=== PATIENT | male | born 1970 | race Two or more races ===

== ENCOUNTER 2017-09-09 07:10 | Emergency (ER) | payer MEDICAID, OTHER ==
[~2017-09-09] VITALS: Ht 175.3 cm; Wt 83.9 kg
[2017-09-09] MEDS ORDERED: DONNATAL 5ml ORAL Elix (BELLADONNA ALK-PHENOBARB) PO ONE (08:15)
[2017-09-09] MEDS ORDERED: ALUM & MAG HYDROX-SIMETH LIQ(MAALOX) 30 ML PO ONE (08:15)
[2017-09-09] MEDS ORDERED: LIDOCAINE VISCOUS 2% 15ML UD PO ONE (08:15)
[2017-09-09 08:21] LABS: Basophils # (auto) 0 uL; Basophils % (auto) 0.2 % (0.0-2.0); Eosinophils # (auto) 0 uL; Hemoglobin 9.8 g/dL (13.5-17.5); Lymphocytes # (auto) 0.8 uL; Mean Corpuscular Hgb Conc. 33.9 g/dL (32.0-36.0); Mean Corpuscular Volume 88.5 fL (80.0-100.0); Monocytes # (auto) 0.4 uL; Monocytes % (auto) 4.3 % (0.0-12.0); Neutrophils # (auto) 8.1 uL; Neutrophils % (auto) 86.5 % (37.0-80.0); Platelet Count (auto) 148 10^3/uL (140-450); Red Blood Cells 3.28 10^6/uL (4.5-5.90); Red Cell Distribution Width 15.4 % (11.8-14.3); White Blood Cell 9.3 10^3/uL (4.4-10.8)
[2017-09-09 08:46] LABS: Albumin 2.7 g/dL (3.4-5.0); BUN/Creatinine Ratio 35.9; Bilirubin, Total 1.5 mg/dL (0.2-1.0); Calcium 8.1 mg/dL (8.5-10.1); Potassium 3.8 mmol/L (3.5-5.1)
[2017-09-09 09:06] LABS: Urine Bacteria NONE SEEN /hpf (None Seen); Urine Blood 2+ /uL (Negative); Urine Hyaline Cast FEW /lpf (0 - 2); Urine Mucus FEW (None Seen); Urine Specific Gravity 1.025 (1.001-1.035); Urine WBC 6 /hpf (0 - 3)
[2017-09-09] MEDS ORDERED: cefTRIAXone SOD 1,000 MG VL IM ONE (09:30)
[2017-09-09] MEDS ORDERED: cefTRIAXone 1GM/10ml IVPUSH 10 ML IV ONE (10:30)
[2017-09-09 10:39] VITALS: BP 116/67
== END 2017-09-09 11:40 | disposition home or self-care (01) ==
LOC: ER 07:10
DX: K46.9 Unspecified abdominal hernia without obstruction or gangrene (principal); N39.0 Urinary tract infection, site not specified
CPT/HCPCS: 36415; 74176; 80053; 81001; 85025; 96374

== ENCOUNTER 2021-04-13 06:28 | Emergency (ER) | payer MEDICAID ==
[~2021-04-13] VITALS: Ht 177.8 cm; Wt 101.2 kg
[~2021-04-13 06:28] MED LIST: FERR27TA2 PO; FURO40TA4 PO
[2021-04-13 08:36] LABS: Basophils # (auto) 0 10 ^3/uL (0-0.2); Eosinophils # (auto) 0.1 10 ^3/uL (0-0.8); Hematocrit 26.1 % (41.0-53.0); Hemoglobin 7.9 g/dL (13.5-17.5)
[2021-04-13 08:39] LABS: Basophils % (auto) 0.2 % (0.0-2.0); Lymphocytes # (auto) 0.8 10 ^3/uL (0.4-5.4); Lymphocytes % (auto) 12.9 % (10.0-50.0); Mean Corpuscular Hemoglobin 18.9 pg (28.0-32.0); Mean Corpuscular Hgb Conc. 30.4 g/dL (32.0-36.0); Mean Corpuscular Volume 62.2 fL (80.0-100.0); Monocytes # (auto) 0.5 10 ^3/uL (0-1.3); Monocytes % (auto) 8.8 % (0.0-12.0); Neutrophils # (auto) 4.8 10 ^3/uL (1.6-8.6); Neutrophils % (auto) 77.1 % (37.0-80.0); Nucleated Red Blood Cells % 0.2 %; Red Blood Cells 4.19 10^6/uL (4.5-5.90); Red Cell Distribution Width 22.7 % (11.8-14.3); White Blood Cell 6.2 10^3/uL (4.4-10.8)
[2021-04-13 08:47] LABS: Potassium 4.1 mmol/L (3.5-5.1)
[2021-04-13 08:56] LABS: BUN/Creatinine Ratio 30.6; Bilirubin, Total 1.2 mg/dL (0.2-1.0); Calcium 8.7 mg/dL (8.5-10.1); INR 1.17 (0.9-1.15); Partial Thromboplastin Time 24.3 sec (23.6-33.0); Total Protein 7.2 g/dL (6.4-8.2)
[2021-04-13 11:30] VITALS: BP 132/88
== END 2021-04-13 12:18 | disposition home or self-care (01) ==
LOC: ER 06:28
DX: K74.60 Unspecified cirrhosis of liver (principal); Z86.2 Personal history of diseases of the blood and blood-forming organs and certain disorders involving the immune mechanism; Z79.899 Other long term (current) drug therapy
CPT/HCPCS: 36415; 49083; 76700; 76942; 80053; 83605; 83690; 84484; 85025; 85610; 85730; 87040; 99285; C1729; 49082

== ENCOUNTER 2021-04-24 09:59 | Inpatient (IN) | payer MEDICAID ==
[~2021-04-24] VITALS: Ht 167.6 cm; Wt 87.3 kg
[2021-04-24 11:12] LABS: Basophils # (auto) 0 10 ^3/uL (0-0.2); Eosinophils # (auto) 0 10 ^3/uL (0-0.8); Hemoglobin 7.8 g/dL (13.5-17.5); Mean Corpuscular Hemoglobin 19.5 pg (28.0-32.0); Mean Corpuscular Hgb Conc. 30.4 g/dL (32.0-36.0); Monocytes # (auto) 0.4 10 ^3/uL (0-1.3); Red Blood Cells 3.98 10^6/uL (4.5-5.90)
[2021-04-24 11:20] LABS: Basophils % (auto) 0.5 % (0.0-2.0); Eosinophils % (auto) 0.5 % (0.0-7.0); Hematocrit 25.5 % (41.0-53.0); Lymphocytes # (auto) 0.4 10 ^3/uL (0.4-5.4); Lymphocytes % (auto) 8.1 % (10.0-50.0); Monocytes % (auto) 8.5 % (0.0-12.0); Neutrophils # (auto) 3.7 10 ^3/uL (1.6-8.6); Neutrophils % (auto) 82.4 % (37.0-80.0); Nucleated Red Blood Cells % 0.2 %; Red Cell Distribution Width 26.9 % (11.8-14.3); White Blood Cell 4.5 10^3/uL (4.4-10.8)
[2021-04-24 11:27] LABS: Albumin 2.7 g/dL (3.4-5.0); Calcium 8.3 mg/dL (8.5-10.1); Potassium 5.1 mmol/L (3.5-5.1)
[2021-04-24 11:30] LABS: BUN/Creatinine Ratio 26.6; Total Protein 6.8 g/dL (6.4-8.2)
[2021-04-24 12:00] LABS: INR 1.08 (0.9-1.15)
[2021-04-24] MEDS ORDERED: MORPHINE SULFATE INJECTION 2 MG/ML SYRG IV PRN ×2 (16:15)
[2021-04-24] MEDS ORDERED: NITROGLYCERIN 0.4 MG SL TAB SL PRN (16:15)
[2021-04-24] MEDS ORDERED: ONDANSETRON HCL 4 MG/2 ML VIAL IV PRN (16:15)
[2021-04-24] MEDS: SODIUM CHLORIDE 0.9% 1,000 ML IV SCH (16:38)
[2021-04-24 23:25] VITALS: BP 127/70
[2021-04-25] MEDS: SODIUM CHLORIDE 0.9% 1,000 ML IV SCH (00:35)
[2021-04-25 05:00] VITALS: BP 125/81
[2021-04-25 06:53] LABS: Albumin 2.6 g/dL (3.4-5.0); BUN/Creatinine Ratio 29.9; Calcium 8.4 mg/dL (8.5-10.1); Potassium 4.8 mmol/L (3.5-5.1)
[2021-04-25 06:56] LABS: Bilirubin, Total 0.9 mg/dL (0.2-1.0); Total Protein 6.5 g/dL (6.4-8.2)
[2021-04-25 07:09] LABS: Basophils # (auto) 0 10 ^3/uL (0-0.2); Basophils % (auto) 0.4 % (0.0-2.0); Eosinophils # (auto) 0 10 ^3/uL (0-0.8); Eosinophils % (auto) 1.1 % (0.0-7.0); Hematocrit 26.2 % (41.0-53.0); Hemoglobin 7.6 g/dL (13.5-17.5); Lymphocytes # (auto) 0.3 10 ^3/uL (0.4-5.4); Lymphocytes % (auto) 9.4 % (10.0-50.0); Mean Corpuscular Hgb Conc. 28.9 g/dL (32.0-36.0); Monocytes # (auto) 0.3 10 ^3/uL (0-1.3); Monocytes % (auto) 9.7 % (0.0-12.0); Neutrophils # (auto) 2.8 10 ^3/uL (1.6-8.6); Neutrophils % (auto) 79.4 % (37.0-80.0); Nucleated Red Blood Cells % 0.2 %; Red Blood Cells 4.03 10^6/uL (4.5-5.90); White Blood Cell 3.5 10^3/uL (4.4-10.8)
[2021-04-25 07:12] LABS: Mean Corpuscular Hemoglobin 18.8 pg (28.0-32.0); Mean Corpuscular Volume 64.9 fL (80.0-100.0); Red Cell Distribution Width 27.4 % (11.8-14.3)
[2021-04-25 09:00] VITALS: BP 118/77
[2021-04-25] MEDS: HYDROcodone-ACET 5/325MG TAB PO PRN ×2 (10:53→20:29)
[2021-04-25 13:00] VITALS: BP 117/70
[2021-04-25 17:00] VITALS: BP 118/70
[2021-04-25 22:00] VITALS: BP 100/68
[2021-04-26 05:00] VITALS: BP 105/70
[2021-04-26 09:00] VITALS: BP 118/73
[2021-04-26 13:00] VITALS: BP 104/75
[2021-04-26 17:00] VITALS: BP 116/67
[2021-04-26] MEDS: HYDROcodone-ACET 5/325MG TAB PO PRN (21:42)
[2021-04-26 21:53] VITALS: BP 130/73
[2021-04-27 04:59] VITALS: BP 108/59
[2021-04-27 09:00] VITALS: BP 123/76
[2021-04-27] MEDS: FUROSEMIDE 40 MG/4 ML VIAL IV SCH (10:07)
[2021-04-27] MEDS: SPIRONOLACTONE 25 MG TAB PO SCH (10:07)
[2021-04-27 13:00] VITALS: BP 116/77
[2021-04-27 17:00] VITALS: BP 136/85
[2021-04-27 20:00] VITALS: BP 128/74
[2021-04-27 22:00] VITALS: BP_SYST 108; BP_SYST 126; BP_DIAS 56; BP_DIAS 61
[2021-04-27] MEDS: HYDROcodone-ACET 5/325MG TAB PO PRN (22:13)
[2021-04-28 05:00] VITALS: BP 108/65
[2021-04-28 09:00] VITALS: BP 122/79
[2021-04-28] MEDS: SPIRONOLACTONE 25 MG TAB PO SCH (09:32)
[2021-04-28] MEDS: FUROSEMIDE 40 MG/4 ML VIAL IV SCH (09:41)
[2021-04-28 13:00] VITALS: BP 95/57
[2021-04-28 15:38] LABS: Basophils # (auto) 0 10 ^3/uL (0-0.2); Basophils % (auto) 0.4 % (0.0-2.0); Eosinophils # (auto) 0 10 ^3/uL (0-0.8); Eosinophils % (auto) 0.8 % (0.0-7.0); Hemoglobin 8.1 g/dL (13.5-17.5); Lymphocytes # (auto) 0.4 10 ^3/uL (0.4-5.4); Lymphocytes % (auto) 8.9 % (10.0-50.0); Mean Corpuscular Hemoglobin 19.3 pg (28.0-32.0); Mean Corpuscular Hgb Conc. 30.1 g/dL (32.0-36.0); Monocytes # (auto) 0.4 10 ^3/uL (0-1.3); Monocytes % (auto) 9.4 % (0.0-12.0); Neutrophils # (auto) 3.6 10 ^3/uL (1.6-8.6); Neutrophils % (auto) 80.5 % (37.0-80.0); Nucleated Red Blood Cells % 0.1 %; White Blood Cell 4.5 10^3/uL (4.4-10.8)
[2021-04-28 15:39] LABS: Mean Corpuscular Volume 64.2 fL (80.0-100.0)
[2021-04-28 15:50] LABS: Calcium 7.9 mg/dL (8.5-10.1); Potassium 4.8 mmol/L (3.5-5.1)
[2021-04-28 15:55] LABS: Albumin 2.5 g/dL (3.4-5.0); BUN/Creatinine Ratio 26.2; Bilirubin, Total 0.8 mg/dL (0.2-1.0); Total Protein 6.4 g/dL (6.4-8.2)
[2021-04-28 17:00] VITALS: BP 98/70
[2021-04-28 17:17] LABS: Hepatitis A Ab IgM Negative; Hepatitis B Core IgM Negative
[2021-04-28 17:18] LABS: Hepatitis C Antibody Negative (Negative)
[2021-04-28 19:50] VITALS: BP 107/66
[2021-04-28] MEDS: HYDROcodone-ACET 5/325MG TAB PO PRN (20:59)
[2021-04-28 21:18] VITALS: BP 107/66
[2021-04-29 05:00] VITALS: BP 98/71
[2021-04-29 09:00] VITALS: BP 110/71
[2021-04-29] MEDS: SPIRONOLACTONE 25 MG TAB PO SCH (10:03)
[2021-04-29] MEDS: FUROSEMIDE 40 MG/4 ML VIAL IV SCH (10:03)
[2021-04-29 13:00] VITALS: BP 102/59
[2021-04-29 13:32] LABS: INR 1.1 (0.9-1.15); Partial Thromboplastin Time 25.8 sec (23.6-33.0)
[2021-04-29 17:00] VITALS: BP 105/64
[2021-04-29 22:00] VITALS: BP 116/68
[2021-04-29] MEDS: HYDROcodone-ACET 5/325MG TAB PO PRN (22:16)
[2021-04-30 05:00] VITALS: BP 93/55
[2021-04-30] MEDS: FUROSEMIDE 40 MG/4 ML VIAL IV SCH (10:07)
[2021-04-30] MEDS: SPIRONOLACTONE 25 MG TAB PO SCH (10:07)
[2021-04-30 13:00] VITALS: BP 102/64
[2021-04-30] MEDS: HYDROcodone-ACET 5/325MG TAB PO PRN ×2 (14:23→20:54)
[2021-04-30 22:00] VITALS: BP 112/62
[2021-05-01] MEDS: HYDROcodone-ACET 5/325MG TAB PO PRN (03:44)
[2021-05-01 05:00] VITALS: BP 103/60
[2021-05-01 06:54] LABS: Calcium 7.8 mg/dL (8.5-10.1); Potassium 5.1 mmol/L (3.5-5.1)
[2021-05-01 07:00] LABS: Albumin 2.3 g/dL (3.4-5.0); Total Protein 5.8 g/dL (6.4-8.2)
[2021-05-01 07:01] LABS: Basophils # (auto) 0 10 ^3/uL (0-0.2); Basophils % (auto) 0.5 % (0.0-2.0); Eosinophils # (auto) 0 10 ^3/uL (0-0.8); Eosinophils % (auto) 0.9 % (0.0-7.0); Hematocrit 26.9 % (41.0-53.0); Hemoglobin 8.3 g/dL (13.5-17.5); Lymphocytes # (auto) 0.4 10 ^3/uL (0.4-5.4); Lymphocytes % (auto) 9.2 % (10.0-50.0); Monocytes # (auto) 0.5 10 ^3/uL (0-1.3); Monocytes % (auto) 11.5 % (0.0-12.0); Neutrophils # (auto) 3.5 10 ^3/uL (1.6-8.6); Neutrophils % (auto) 77.9 % (37.0-80.0); Red Blood Cells 4.18 10^6/uL (4.5-5.90); White Blood Cell 4.5 10^3/uL (4.4-10.8)
[2021-05-01 07:03] LABS: Mean Corpuscular Hemoglobin 19.9 pg (28.0-32.0); Mean Corpuscular Volume 64.3 fL (80.0-100.0); Red Cell Distribution Width 26.1 % (11.8-14.3)
[2021-05-01 09:00] VITALS: BP 97/60
[2021-05-01] MEDS: FUROSEMIDE 40 MG/4 ML VIAL IV SCH (09:56)
[2021-05-01] MEDS: SPIRONOLACTONE 25 MG TAB PO SCH (09:56)
[2021-05-01 12:45] VITALS: BP 107/61
[2021-05-01 16:09] VITALS: BP 107/61
[2021-05-01 16:15] VITALS: BP 102/58
== END 2021-05-01 16:38 | disposition home health service (06) | DRG 280 ==
LOC: ER 09:59 → TELE 16:05 → TELE-CENTR 20:34 → CENTRAL 20:37
PROVIDERS: ADMIT Nurse Practitioner; ATTEND Nurse Practitioner
PROC: 0W9G3ZZ Drainage of Peritoneal Cavity, Percutaneous Approach (ICD-10-PCS; principal; 2021-04-25)
PROC: 0W9G3ZZ Drainage of Peritoneal Cavity, Percutaneous Approach (ICD-10-PCS; 2021-04-29)
DX: K70.31 Alcoholic cirrhosis of liver with ascites (principal); E43 Unspecified severe protein-calorie malnutrition; D63.8 Anemia in other chronic diseases classified elsewhere; F10.10 Alcohol abuse, uncomplicated; N28.9 Disorder of kidney and ureter, unspecified; D53.9 Nutritional anemia, unspecified; K43.9 Ventral hernia without obstruction or gangrene; Z20.822 Contact with and (suspected) exposure to COVID-19
CPT/HCPCS: 36415; 71045; 76700; 76705; 76942; 80053; 80074; 82140; 83615; 83690; 83880; 83986; 85025; 85048; 85610; 85730; 87205; 89051; 93005; G0378

== ENCOUNTER 2021-05-19 07:00 | Emergency (ER) | payer MEDICAID ==
[~2021-05-19] VITALS: Ht 180.3 cm; Wt 90.7 kg
[2021-05-19 10:18] VITALS: BP 112/81
[2021-05-19 10:25] LABS: Hemoglobin 8.4 g/dL (13.5-17.5); White Blood Cell 8.1 10^3/uL (4.4-10.8)
[2021-05-19 10:27] LABS: Hematocrit 26.9 % (41.0-53.0); Mean Corpuscular Hemoglobin 20.6 pg (28.0-32.0); Mean Corpuscular Hgb Conc. 31.2 g/dL (32.0-36.0); Red Blood Cells 4.07 10^6/uL (4.5-5.90)
[2021-05-19 11:00] LABS: INR 1.08 (0.9-1.15); Partial Thromboplastin Time 25.9 sec (23.6-33.0)
[2021-05-19 11:03] LABS: Potassium 3.9 mmol/L (3.5-5.1)
[2021-05-19 11:11] LABS: Albumin 2.6 g/dL (3.4-5.0); BUN/Creatinine Ratio 22.8; Bilirubin, Total 0.7 mg/dL (0.2-1.0); Total Protein 6.5 g/dL (6.4-8.2)
[2021-05-19 11:16] LABS: Red Cell Distribution Width 25.9 % (11.8-14.3)
[2021-05-19 11:18] LABS: Basophils % (manual) 0 (0.0-2.0); Blast Cells 0; Eosinophils % (manual) 0 (0-7); Metamyelocytes % 0; Myelocytes % 0; Promyelocytes % 0; Reactive Lymphocytes 0
[2021-05-19 12:54] LABS: Band Neutrophils % (manual) 2; Lymphocytes % (manual) 5 (10.0-50.0); Monocytes % (manual) 3 (0-12)
== END 2021-05-19 11:23 | disposition home or self-care (01) ==
LOC: ER 07:00
DX: K74.69 Other cirrhosis of liver (principal); D64.9 Anemia, unspecified; R74.01 Elevation of levels of liver transaminase levels; F17.210 Nicotine dependence, cigarettes, uncomplicated; F12.10 Cannabis abuse, uncomplicated
CPT/HCPCS: 36415; 49083; 76700; 76942; 80053; 84484; 85007; 85027; 85610; 85730; 99285; C1729

== ENCOUNTER 2021-06-26 04:56 | Inpatient (IN) | payer MEDICAID ==
[~2021-06-26] VITALS: Ht 177.8 cm; Wt 71.0 kg
[2021-06-26] MEDS ORDERED: ACCU-CHEK COMFORT CURVE STRIP VI ONE (05:15)
[2021-06-26 05:26] LABS: Eosinophils # (auto) 0 10 ^3/uL (0-0.8); Eosinophils % (auto) 0.2 % (0.0-7.0); Monocytes # (auto) 0.7 10 ^3/uL (0-1.3); Monocytes % (auto) 5.4 % (0.0-12.0); White Blood Cell 12.5 10^3/uL (4.4-10.8)
[2021-06-26 05:27] LABS: Basophils # (auto) 0 10 ^3/uL (0-0.2); Basophils % (auto) 0.1 % (0.0-2.0); Hemoglobin 9.2 g/dL (13.5-17.5); Lymphocytes # (auto) 0.5 10 ^3/uL (0.4-5.4); Mean Corpuscular Hemoglobin 22.2 pg (28.0-32.0); Mean Corpuscular Hgb Conc. 32.7 g/dL (32.0-36.0); Mean Corpuscular Volume 67.9 fL (80.0-100.0); Neutrophils # (auto) 11.3 10 ^3/uL (1.6-8.6); Neutrophils % (auto) 90.3 % (37.0-80.0); Red Blood Cells 4.12 10^6/uL (4.5-5.90)
[2021-06-26 05:32] LABS: Red Cell Distribution Width 24.7 % (11.8-14.3)
[2021-06-26 05:43] LABS: Albumin 2.8 g/dL (3.4-5.0); Calcium 8.3 mg/dL (8.5-10.1)
[2021-06-26 05:46] LABS: BUN/Creatinine Ratio 27.4; Bilirubin, Total 1.1 mg/dL (0.2-1.0)
[2021-06-26 05:49] LABS: Potassium 6.7 mmol/L (3.5-5.1)
[2021-06-26] MEDS ORDERED: ALBUTEROL SULF 2.5 MG/0.5ML(0.5%) NEB SOLN NEB ONE (06:15)
[2021-06-26] MEDS ORDERED: FUROSEMIDE 100 MG/10ML VIAL IV ONE (06:15)
[2021-06-26] MEDS ORDERED: SODIUM CHLORIDE 0.9% 1,000 ML IV ONE (06:15)
[2021-06-26] MEDS ORDERED: DEXTROSE (50%) 50ML SYRG IV ONE (06:15)
[2021-06-26] MEDS ORDERED: SODIUM ZIRCONIUM CYCL 10 GM PAK PO ONE ×2 (06:15→22:00)
[2021-06-26] MEDS ORDERED: SODIUM BICARBONATE 8.4% INJ 50ML SYRINGE IV ONE (06:15)
[2021-06-26] MEDS ORDERED: CALCIUM GLUC 1,000mg/50ml-NS 50 ML IV ONE (06:15)
[2021-06-26] MEDS ORDERED: InsuLIN REG 1unit/0.01ml Soln (100units/ml) IV ONE (06:15)
[2021-06-26] MEDS ORDERED: DOCUSATE SOD 100 MG CAP PO PRN (08:45)
[2021-06-26] MEDS ORDERED: NITROGLYCERIN 0.4 MG SL TAB SL PRN (08:45)
[2021-06-26] MEDS ORDERED: ACETAMINOPHEN 325 MG TAB PO PRN (08:45)
[2021-06-26] MEDS ORDERED: MORPHINE SULFATE INJECTION 2 MG/ML SYRG IV PRN ×2 (08:45)
[2021-06-26] MEDS: SODIUM CHLORIDE 0.9% 1,000 ML IV SCH ×2 (14:17→14:50)
[2021-06-26] MEDS: HEPARIN SODIUM (PORCINE) 5000 UNITS/ML 1ML VIAL SC SCH ×2 (14:17→22:09)
[2021-06-26 16:19] LABS: Alcohol, Urine < 3.0 mg/dL (0-10); Amphetamine Screen, Urine NEGATIVE (NEGATIVE); Barbiturate Scree,Urine NEGATIVE (NEGATIVE); Benzodiazephine Screen, Urine NEGATIVE (NEGATIVE); Cannabinoid Screen, Urine NEGATIVE (NEGATIVE); Cocaine Screen, Urine NEGATIVE (NEGATIVE); Opiate Scree,Urine NEGATIVE (NEGATIVE); Phencyclidine Screen, Urine NEGATIVE (NEGATIVE)
[2021-06-26 16:22] LABS: Urine Bacteria NONE SEEN /hpf (None Seen); Urine Blood Negative /uL (Negative); Urine WBC 2 /hpf (0 - 3)
[2021-06-26 17:00] VITALS: BP 112/70
[2021-06-26] MEDS: LACTULOSE 20Gm/30ML SOLN PO SCH (18:15)
[2021-06-26 18:16] LABS: Albumin 2.5 g/dL (3.4-5.0); BUN/Creatinine Ratio 26.2; Calcium 8.1 mg/dL (8.5-10.1); Potassium 5.5 mmol/L (3.5-5.1)
[2021-06-26 18:23] LABS: Total Protein 5.6 g/dL (6.4-8.2)
[2021-06-26] MEDS: HYDROcodone-ACET 5/325MG TAB PO PRN (20:29)
[2021-06-26 22:00] VITALS: BP 97/63
[2021-06-27] MEDS: LACTULOSE 20Gm/30ML SOLN PO SCH ×5 (00:41→23:55)
[2021-06-27 04:58] VITALS: BP 98/67
[2021-06-27 06:43] LABS: Potassium 5.4 mmol/L (3.5-5.1)
[2021-06-27 06:51] LABS: Basophils # (auto) 0 10 ^3/uL (0-0.2); Eosinophils # (auto) 0 10 ^3/uL (0-0.8); Hemoglobin 8.3 g/dL (13.5-17.5); Mean Corpuscular Hemoglobin 22.6 pg (28.0-32.0); Monocytes % (auto) 5.5 % (0.0-12.0)
[2021-06-27 06:54] LABS: Albumin 2.4 g/dL (3.4-5.0); BUN/Creatinine Ratio 28.8; Calcium 8.1 mg/dL (8.5-10.1); Total Protein 5.4 g/dL (6.4-8.2)
[2021-06-27 06:55] LABS: Basophils % (auto) 0.1 % (0.0-2.0); Eosinophils % (auto) 0.3 % (0.0-7.0); Hematocrit 27.2 % (41.0-53.0); Lymphocytes # (auto) 0.6 10 ^3/uL (0.4-5.4); Lymphocytes % (auto) 5.9 % (10.0-50.0); Mean Corpuscular Hgb Conc. 30.7 g/dL (32.0-36.0); Monocytes # (auto) 0.6 10 ^3/uL (0-1.3); Neutrophils # (auto) 9.1 10 ^3/uL (1.6-8.6); Neutrophils % (auto) 88.2 % (37.0-80.0); Red Blood Cells 3.69 10^6/uL (4.5-5.90); White Blood Cell 10.3 10^3/uL (4.4-10.8)
[2021-06-27 06:56] LABS: Mean Corpuscular Volume 73.6 fL (80.0-100.0); Red Cell Distribution Width 24.9 % (11.8-14.3)
[2021-06-27] MEDS: SODIUM CHLORIDE 0.9% 1,000 ML IV SCH ×2 (06:57→15:55)
[2021-06-27] MEDS: HEPARIN SODIUM (PORCINE) 5000 UNITS/ML 1ML VIAL SC SCH ×2 (06:58→15:52)
[2021-06-27 09:00] VITALS: BP 98/70
[2021-06-27 09:12] LABS: INR 1.12 (0.9-1.15); Partial Thromboplastin Time 25.5 sec (23.6-33.0)
[2021-06-27] MEDS ORDERED: ALBUMIN 25% 100 ML IV ONE (12:39)
[2021-06-27] MEDS ORDERED: ALBUMIN 25% 50 ML IV ONE ×2 (13:30)
[2021-06-27] MEDS: rifAXIMin 550 MG TAB PO SCH ×2 (15:52→23:55)
[2021-06-27] MEDS: ONDANSETRON HCL 4 MG/2 ML VIAL IV PRN (15:59)
[2021-06-27] MEDS ORDERED: SODIUM ZIRCONIUM CYCL 10 GM PAK PO ONE (16:00)
[2021-06-27 17:00] VITALS: BP 102/66
[2021-06-27] MEDS: SODIUM BICARBONATE 50ML VIAL 100 ML in SOD CHL 0.45% 1,000 ML IV SCH (17:27)
[2021-06-27] MEDS: ALBUMIN 25% 100 ML IV SCH ×2 (17:36→23:55)
[2021-06-27 22:00] VITALS: BP 105/59
[2021-06-28] MEDS: HEPARIN SODIUM (PORCINE) 5000 UNITS/ML 1ML VIAL SC SCH ×4 (00:07→23:32)
[2021-06-28 05:00] VITALS: BP 99/55
[2021-06-28 05:31] LABS: Basophils # (auto) 0 10 ^3/uL (0-0.2); Eosinophils # (auto) 0 10 ^3/uL (0-0.8); Lymphocytes # (auto) 0.3 10 ^3/uL (0.4-5.4); Mean Corpuscular Hemoglobin 23.2 pg (28.0-32.0); Monocytes # (auto) 0.3 10 ^3/uL (0-1.3); Nucleated Red Blood Cells % 0.1 %
[2021-06-28 05:35] LABS: Basophils % (auto) 0.2 % (0.0-2.0); Eosinophils % (auto) 0.4 % (0.0-7.0); Hematocrit 21.3 % (41.0-53.0); Hemoglobin 7.1 g/dL (13.5-17.5); Lymphocytes % (auto) 6.6 % (10.0-50.0); Mean Corpuscular Hgb Conc. 33.4 g/dL (32.0-36.0); Mean Corpuscular Volume 69.5 fL (80.0-100.0); Monocytes % (auto) 7.1 % (0.0-12.0); Neutrophils % (auto) 85.7 % (37.0-80.0); Red Blood Cells 3.07 10^6/uL (4.5-5.90); White Blood Cell 4.6 10^3/uL (4.4-10.8)
[2021-06-28 05:36] LABS: Red Cell Distribution Width 24.6 % (11.8-14.3)
[2021-06-28 06:06] LABS: Albumin 3.3 g/dL (3.4-5.0); Calcium 8.1 mg/dL (8.5-10.1); Potassium 4.6 mmol/L (3.5-5.1)
[2021-06-28 06:11] LABS: BUN/Creatinine Ratio 28.3; Bilirubin, Total 1.5 mg/dL (0.2-1.0); Total Protein 5.6 g/dL (6.4-8.2)
[2021-06-28] MEDS: ALBUMIN 25% 100 ML IV SCH ×4 (06:15→23:16)
[2021-06-28] MEDS: LACTULOSE 20Gm/30ML SOLN PO SCH ×4 (06:15→23:37)
[2021-06-28] MEDS: SODIUM BICARBONATE 50ML VIAL 100 ML in SOD CHL 0.45% 1,000 ML IV SCH ×2 (06:59→14:00)
[2021-06-28 08:00] VITALS: BP 96/59
[2021-06-28] MEDS: rifAXIMin 550 MG TAB PO SCH ×2 (11:28→23:16)
[2021-06-28 12:47] VITALS: BP 95/62
[2021-06-28] MEDS: HYDROcodone-ACET 5/325MG TAB PO PRN (14:45)
[2021-06-28 16:47] VITALS: BP 93/49
[2021-06-28 22:00] VITALS: BP 87/56
[2021-06-29] VITALS (8 sets, daily range): BP systolic 14–111; BP diastolic 56–78
[2021-06-29] MEDS: SODIUM BICARBONATE 50ML VIAL 100 ML in SOD CHL 0.45% 1,000 ML IV SCH ×3 (04:53→23:00)
[2021-06-29] MEDS: ALBUMIN 25% 100 ML IV SCH ×2 (06:03→15:43)
[2021-06-29] MEDS: LACTULOSE 20Gm/30ML SOLN PO SCH ×3 (06:04→18:36)
[2021-06-29] MEDS: HEPARIN SODIUM (PORCINE) 5000 UNITS/ML 1ML VIAL SC SCH (06:12)
[2021-06-29 07:16] LABS: Basophils # (auto) 0 10 ^3/uL (0-0.2); Basophils % (auto) 0.2 % (0.0-2.0); Eosinophils # (auto) 0 10 ^3/uL (0-0.8); Eosinophils % (auto) 0.3 % (0.0-7.0); Monocytes # (auto) 0.3 10 ^3/uL (0-1.3); Monocytes % (auto) 7.7 % (0.0-12.0)
[2021-06-29 07:20] LABS: Hematocrit 18.9 % (41.0-53.0); Lymphocytes # (auto) 0.2 10 ^3/uL (0.4-5.4); Lymphocytes % (auto) 6.9 % (10.0-50.0); Mean Corpuscular Hemoglobin 23.5 pg (28.0-32.0); Mean Corpuscular Volume 69.1 fL (80.0-100.0); Neutrophils # (auto) 2.9 10 ^3/uL (1.6-8.6); Neutrophils % (auto) 84.9 % (37.0-80.0); Red Blood Cells 2.73 10^6/uL (4.5-5.90); White Blood Cell 3.4 10^3/uL (4.4-10.8)
[2021-06-29 07:27] LABS: Red Cell Distribution Width 24.9 % (11.8-14.3)
[2021-06-29 07:29] LABS: Hemoglobin 6.4 g/dL (13.5-17.5); Potassium 4.2 mmol/L (3.5-5.1)
[2021-06-29 07:36] LABS: BUN/Creatinine Ratio 29.6; Calcium 8.4 mg/dL (8.5-10.1)
[2021-06-29] MEDS: rifAXIMin 550 MG TAB PO SCH ×2 (09:32→22:46)
[2021-06-29] MEDS: PANTOPRAZOLE 40 MG/10 ML VIAL INJ IV SCH ×2 (13:23→22:47)
[2021-06-29] MEDS ORDERED: ALBUMIN 25% 100 ML IV SCH (18:00)
[2021-06-30 05:00] VITALS: BP 103/54
[2021-06-30 05:50] LABS: Urine Bacteria FEW /hpf (None Seen); Urine Blood TRACE /uL (Negative); Urine Hyaline Cast FEW /lpf (0 - 2); Urine Mucus FEW (None Seen); Urine Specific Gravity 1.017 (1.001-1.035); Urine WBC 9 /hpf (0 - 3)
[2021-06-30] MEDS: LACTULOSE 20Gm/30ML SOLN PO SCH ×4 (06:00→18:12)
[2021-06-30 06:41] LABS: Basophils # (auto) 0 10 ^3/uL (0-0.2); Eosinophils # (auto) 0 10 ^3/uL (0-0.8); Hemoglobin 7.5 g/dL (13.5-17.5); Lymphocytes # (auto) 0.2 10 ^3/uL (0.4-5.4); Monocytes # (auto) 0.3 10 ^3/uL (0-1.3); Neutrophils # (auto) 3.2 10 ^3/uL (1.6-8.6); White Blood Cell 3.8 10^3/uL (4.4-10.8)
[2021-06-30 06:48] LABS: Basophils % (auto) 0.2 % (0.0-2.0); Eosinophils % (auto) 0.2 % (0.0-7.0); Hematocrit 22.2 % (41.0-53.0); Lymphocytes % (auto) 6.3 % (10.0-50.0); Mean Corpuscular Hemoglobin 24.2 pg (28.0-32.0); Mean Corpuscular Hgb Conc. 33.8 g/dL (32.0-36.0); Mean Corpuscular Volume 71.6 fL (80.0-100.0); Monocytes % (auto) 8.1 % (0.0-12.0); Neutrophils % (auto) 85.2 % (37.0-80.0); Nucleated Red Blood Cells % 0.2 %; Red Cell Distribution Width 25.8 % (11.8-14.3)
[2021-06-30 06:56] LABS: INR 1.22 (0.9-1.15); Partial Thromboplastin Time 29.3 sec (23.6-33.0)
[2021-06-30 08:52] VITALS: BP 101/61
[2021-06-30] MEDS ORDERED: SODIUM CHLORIDE LOCK 10 ML ONE (09:22)
[2021-06-30] MEDS ORDERED: LIDOCAINE VISCOUS 2% 15ML UD ONE (09:22)
[2021-06-30] MEDS ORDERED: diphenhdrAMINE HCL 50 MG/1 ML VL ONE (09:22)
[2021-06-30] MEDS ORDERED: fentaNYL CITRATE 100 MCG/2 ML VL ONE (09:22)
[2021-06-30] MEDS ORDERED: MIDAZOLAM HCL 5 MG/ML-1ML VIAL ONE (09:22)
[2021-06-30] MEDS: PANTOPRAZOLE 40 MG/10 ML VIAL INJ IV SCH (09:40)
[2021-06-30] MEDS: rifAXIMin 550 MG TAB PO SCH ×2 (09:41→21:45)
[2021-06-30 12:46] VITALS: BP 99/58
[2021-06-30 17:00] VITALS: BP 93/63
[2021-06-30 18:26] LABS: BUN/Creatinine Ratio 22.6; Calcium 8.1 mg/dL (8.5-10.1); Potassium 4.3 mmol/L (3.5-5.1)
[2021-06-30] MEDS: SODIUM BICARBONATE 50ML VIAL 100 ML in SOD CHL 0.45% 1,000 ML IV SCH ×2 (19:30→20:27)
[2021-06-30] MEDS: PANTOPRAZOLE 40 MG TAB PO SCH (21:44)
[2021-06-30 22:00] VITALS: BP 98/64
[2021-06-30 22:36] LABS: Urine Bacteria NONE SEEN /hpf (None Seen); Urine Blood TRACE /uL (Negative); Urine Specific Gravity 1.017 (1.001-1.035); Urine WBC 2 /hpf (0 - 3)
[2021-07-01] MEDS: LACTULOSE 20Gm/30ML SOLN PO SCH ×4 (00:21→18:54)
[2021-07-01] MEDS: HYDROcodone-ACET 5/325MG TAB PO PRN (03:45)
[2021-07-01 05:00] VITALS: BP 100/56
[2021-07-01 06:11] LABS: Basophils # (auto) 0 10 ^3/uL (0-0.2); Eosinophils # (auto) 0 10 ^3/uL (0-0.8); Eosinophils % (auto) 0.6 % (0.0-7.0); Lymphocytes # (auto) 0.3 10 ^3/uL (0.4-5.4); Monocytes # (auto) 0.3 10 ^3/uL (0-1.3); White Blood Cell 3.1 10^3/uL (4.4-10.8)
[2021-07-01 06:13] LABS: Basophils % (auto) 0.6 % (0.0-2.0); Hematocrit 21.8 % (41.0-53.0); Hemoglobin 7.3 g/dL (13.5-17.5); Lymphocytes % (auto) 10.2 % (10.0-50.0); Mean Corpuscular Hemoglobin 24.1 pg (28.0-32.0); Mean Corpuscular Hgb Conc. 33.5 g/dL (32.0-36.0); Neutrophils # (auto) 2.4 10 ^3/uL (1.6-8.6); Neutrophils % (auto) 77.6 % (37.0-80.0); Red Blood Cells 3.03 10^6/uL (4.5-5.90)
[2021-07-01 06:29] LABS: Red Cell Distribution Width 25.6 % (11.8-14.3)
[2021-07-01 06:33] LABS: Calcium 8.1 mg/dL (8.5-10.1); Potassium 3.9 mmol/L (3.5-5.1)
[2021-07-01 06:35] LABS: BUN/Creatinine Ratio 24.8
[2021-07-01] MEDS: rifAXIMin 550 MG TAB PO SCH ×2 (08:35→22:15)
[2021-07-01] MEDS: PANTOPRAZOLE 40 MG TAB PO SCH ×2 (08:35→22:15)
[2021-07-01] MEDS: SODIUM BICARBONATE 50ML VIAL 100 ML in SOD CHL 0.45% 1,000 ML IV SCH ×2 (08:35→18:54)
[2021-07-01 09:00] VITALS: BP 98/61
[2021-07-01 13:00] VITALS: BP 93/60
[2021-07-01 17:00] VITALS: BP 99/65
[2021-07-01 22:00] VITALS: BP 102/63
[2021-07-02] MEDS: LACTULOSE 20Gm/30ML SOLN PO SCH ×4 (00:24→18:00)
[2021-07-02] MEDS: HYDROcodone-ACET 5/325MG TAB PO PRN (01:37)
[2021-07-02 05:00] VITALS: BP 98/61
[2021-07-02] MEDS: SODIUM BICARBONATE 50ML VIAL 100 ML in SOD CHL 0.45% 1,000 ML IV SCH ×2 (06:00→17:14)
[2021-07-02 06:33] LABS: Basophils # (auto) 0 10 ^3/uL (0-0.2); Eosinophils # (auto) 0 10 ^3/uL (0-0.8); Hemoglobin 7.8 g/dL (13.5-17.5); Lymphocytes # (auto) 0.3 10 ^3/uL (0.4-5.4); Neutrophils # (auto) 3.2 10 ^3/uL (1.6-8.6)
[2021-07-02 06:36] LABS: Basophils % (auto) 0.5 % (0.0-2.0); Eosinophils % (auto) 0.7 % (0.0-7.0); Hematocrit 23.1 % (41.0-53.0); Lymphocytes % (auto) 8.2 % (10.0-50.0); Mean Corpuscular Hemoglobin 24.3 pg (28.0-32.0); Mean Corpuscular Hgb Conc. 33.8 g/dL (32.0-36.0); Mean Corpuscular Volume 71.9 fL (80.0-100.0); Monocytes # (auto) 0.4 10 ^3/uL (0-1.3); Monocytes % (auto) 10.9 % (0.0-12.0); Neutrophils % (auto) 79.7 % (37.0-80.0); Red Blood Cells 3.22 10^6/uL (4.5-5.90)
[2021-07-02 07:06] LABS: BUN/Creatinine Ratio 26.5; Potassium 3.8 mmol/L (3.5-5.1)
[2021-07-02 09:00] VITALS: BP 101/65
[2021-07-02] MEDS: ONDANSETRON HCL 4 MG/2 ML VIAL IV PRN (09:51)
[2021-07-02] MEDS: PANTOPRAZOLE 40 MG TAB PO SCH ×2 (10:53→22:34)
[2021-07-02] MEDS: rifAXIMin 550 MG TAB PO SCH ×2 (10:54→22:34)
[2021-07-02 13:00] VITALS: BP 102/68
[2021-07-02 17:00] VITALS: BP 101/66
[2021-07-02 22:00] VITALS: BP 101/70
[2021-07-03] MEDS ORDERED: SODIUM BICARBONATE 8.4 % INJ 50ML VIAL IV ONE ×2 (03:28→03:35)
[2021-07-03] MEDS: SODIUM BICARBONATE 50ML VIAL 100 ML in SOD CHL 0.45% 1,000 ML IV SCH ×2 (03:54→17:29)
[2021-07-03 05:00] VITALS: BP 94/68
[2021-07-03] MEDS: LACTULOSE 20Gm/30ML SOLN PO SCH ×4 (06:00→18:00)
[2021-07-03 06:30] LABS: BUN/Creatinine Ratio 23.9; Calcium 8.2 mg/dL (8.5-10.1); Potassium 4.2 mmol/L (3.5-5.1)
[2021-07-03 06:33] LABS: Basophils # (auto) 0 10 ^3/uL (0-0.2); Eosinophils # (auto) 0 10 ^3/uL (0-0.8); Lymphocytes # (auto) 0.3 10 ^3/uL (0.4-5.4); Lymphocytes % (auto) 8.9 % (10.0-50.0); Monocytes # (auto) 0.4 10 ^3/uL (0-1.3); Neutrophils # (auto) 2.7 10 ^3/uL (1.6-8.6); Nucleated Red Blood Cells % 0.1 %; White Blood Cell 3.4 10^3/uL (4.4-10.8)
[2021-07-03 06:40] LABS: Basophils % (auto) 0.4 % (0.0-2.0); Eosinophils % (auto) 0.8 % (0.0-7.0); Hematocrit 24.4 % (41.0-53.0); Hemoglobin 8.2 g/dL (13.5-17.5); Mean Corpuscular Hemoglobin 24.5 pg (28.0-32.0); Mean Corpuscular Hgb Conc. 33.4 g/dL (32.0-36.0); Mean Corpuscular Volume 73.2 fL (80.0-100.0); Monocytes % (auto) 10.8 % (0.0-12.0); Neutrophils % (auto) 79.1 % (37.0-80.0); Red Blood Cells 3.34 10^6/uL (4.5-5.90); Red Cell Distribution Width 26.3 % (11.8-14.3)
[2021-07-03 08:00] VITALS: BP 100/70
[2021-07-03 09:00] VITALS: BP 100/70
[2021-07-03] MEDS: PANTOPRAZOLE 40 MG TAB PO SCH ×2 (09:28→21:27)
[2021-07-03] MEDS: rifAXIMin 550 MG TAB PO SCH ×2 (09:29→21:28)
[2021-07-03 13:00] VITALS: BP 104/66
[2021-07-03 17:00] VITALS: BP 108/72
[2021-07-03 22:00] VITALS: BP 107/70
[2021-07-04] MEDS: SODIUM BICARBONATE 50ML VIAL 100 ML in SOD CHL 0.45% 1,000 ML IV SCH (03:49)
[2021-07-04 05:00] VITALS: BP 106/67
[2021-07-04] MEDS: LACTULOSE 20Gm/30ML SOLN PO SCH ×4 (06:00→18:04)
[2021-07-04 07:21] LABS: Basophils # (auto) 0 10 ^3/uL (0-0.2); Eosinophils # (auto) 0 10 ^3/uL (0-0.8); Eosinophils % (auto) 0.6 % (0.0-7.0); Hemoglobin 7.8 g/dL (13.5-17.5); Lymphocytes # (auto) 0.3 10 ^3/uL (0.4-5.4); Mean Corpuscular Volume 73.9 fL (80.0-100.0); Monocytes # (auto) 0.4 10 ^3/uL (0-1.3); Neutrophils # (auto) 2.9 10 ^3/uL (1.6-8.6)
[2021-07-04 07:22] LABS: Basophils % (auto) 0.3 % (0.0-2.0); Hematocrit 23.8 % (41.0-53.0); Lymphocytes % (auto) 8.9 % (10.0-50.0); Mean Corpuscular Hemoglobin 24.3 pg (28.0-32.0); Mean Corpuscular Hgb Conc. 32.9 g/dL (32.0-36.0); Monocytes % (auto) 11.6 % (0.0-12.0); Neutrophils % (auto) 78.6 % (37.0-80.0); Red Blood Cells 3.22 10^6/uL (4.5-5.90); Red Cell Distribution Width 26.3 % (11.8-14.3); White Blood Cell 3.7 10^3/uL (4.4-10.8)
[2021-07-04 07:49] LABS: Calcium 8.1 mg/dL (8.5-10.1)
[2021-07-04 07:52] LABS: BUN/Creatinine Ratio 23.2
[2021-07-04 09:00] VITALS: BP 103/71
[2021-07-04] MEDS: PANTOPRAZOLE 40 MG TAB PO SCH ×2 (09:35→21:37)
[2021-07-04] MEDS: rifAXIMin 550 MG TAB PO SCH ×2 (09:35→21:38)
[2021-07-04 13:00] VITALS: BP 109/76
[2021-07-04] MEDS ORDERED: ALBUMIN 25% 100 ML IV ONE ×3 (15:37→16:00)
[2021-07-04] MEDS ORDERED: FLUCONAZOLE 100 MG TAB PO SCH (16:00)
[2021-07-04] MEDS ORDERED: ALBUMIN 25% 50 ML IV ONE ×2 (16:00→16:30)
[2021-07-04 17:00] VITALS: BP 98/62
[2021-07-04 21:30] VITALS: BP 90/55
[2021-07-04] MEDS: VALACYCLOVIR HCL 500 MG TAB PO SCH (21:37)
[2021-07-05 05:00] VITALS: BP 100/65
[2021-07-05 06:16] LABS: Basophils # (auto) 0 10 ^3/uL (0-0.2); Basophils % (auto) 0.4 % (0.0-2.0); Eosinophils # (auto) 0 10 ^3/uL (0-0.8); Hemoglobin 7.4 g/dL (13.5-17.5); Lymphocytes # (auto) 0.3 10 ^3/uL (0.4-5.4); Mean Corpuscular Hemoglobin 24.7 pg (28.0-32.0); Monocytes # (auto) 0.3 10 ^3/uL (0-1.3); Nucleated Red Blood Cells % 0.1 %; Red Blood Cells 2.99 10^6/uL (4.5-5.90)
[2021-07-05 06:19] LABS: Eosinophils % (auto) 0.9 % (0.0-7.0); Hematocrit 21.7 % (41.0-53.0); Lymphocytes % (auto) 11.1 % (10.0-50.0); Mean Corpuscular Hgb Conc. 33.9 g/dL (32.0-36.0); Mean Corpuscular Volume 72.7 fL (80.0-100.0); Monocytes % (auto) 10.4 % (0.0-12.0); Neutrophils % (auto) 77.2 % (37.0-80.0); White Blood Cell 2.6 10^3/uL (4.4-10.8)
[2021-07-05] MEDS: LACTULOSE 20Gm/30ML SOLN PO SCH ×4 (06:30→17:06)
[2021-07-05 06:33] LABS: Calcium 8.5 mg/dL (8.5-10.1); Potassium 3.8 mmol/L (3.5-5.1)
[2021-07-05 06:37] LABS: BUN/Creatinine Ratio 22.2
[2021-07-05 06:39] LABS: Red Cell Distribution Width 25.8 % (11.8-14.3)
[2021-07-05 09:00] VITALS: BP 101/64
[2021-07-05] MEDS: rifAXIMin 550 MG TAB PO SCH ×2 (09:20→21:55)
[2021-07-05] MEDS: FLUCONAZOLE 100 MG TAB PO SCH (09:21)
[2021-07-05] MEDS: PANTOPRAZOLE 40 MG TAB PO SCH ×2 (09:21→21:55)
[2021-07-05 13:00] VITALS: BP 103/67
[2021-07-05 17:00] VITALS: BP 96/64
[2021-07-05] MEDS: VALACYCLOVIR HCL 500 MG TAB PO SCH (21:55)
[2021-07-05 22:00] VITALS: BP 97/59
[2021-07-06 05:00] VITALS: BP 99/64
[2021-07-06] MEDS: LACTULOSE 20Gm/30ML SOLN PO SCH ×5 (06:25→23:43)
[2021-07-06 09:00] VITALS: BP 92/59
[2021-07-06] MEDS: PANTOPRAZOLE 40 MG TAB PO SCH ×2 (09:05→21:53)
[2021-07-06] MEDS: rifAXIMin 550 MG TAB PO SCH ×2 (09:05→21:54)
[2021-07-06] MEDS: FLUCONAZOLE 100 MG TAB PO SCH (09:06)
[2021-07-06 13:00] VITALS: BP 101/64
[2021-07-06 17:00] VITALS: BP 99/63
[2021-07-06] MEDS: VALACYCLOVIR HCL 500 MG TAB PO SCH (21:54)
[2021-07-06 22:00] VITALS: BP 114/74
[2021-07-07 05:00] VITALS: BP 114/70
[2021-07-07] MEDS: LACTULOSE 20Gm/30ML SOLN PO SCH ×2 (06:00→11:13)
[2021-07-07 09:00] VITALS: BP 96/64
[2021-07-07] MEDS: FLUCONAZOLE 100 MG TAB PO SCH (09:14)
[2021-07-07] MEDS: rifAXIMin 550 MG TAB PO SCH (09:14)
[2021-07-07] MEDS: PANTOPRAZOLE 40 MG TAB PO SCH (09:14)
[2021-07-07 09:21] LABS: Hepatitis B Surface Antibody Negative (Negative)
[2021-07-07 09:56] LABS: Hepatitis A Total Antibody Positive (Negative)
[2021-07-07 13:00] VITALS: BP 98/64
[2021-07-07 13:15] LABS: Hepatitis C Antibody Negative (Negative)
== END 2021-07-07 16:31 | disposition home or self-care (01) | DRG 280 ==
LOC: ER 04:56 → TELE 08:44 → TELE-CENTR 14:51
PROVIDERS: ADMIT Nurse Practitioner; ATTEND Nurse Practitioner
PROC: 0W9G3ZZ Drainage of Peritoneal Cavity, Percutaneous Approach (ICD-10-PCS; principal; 2021-06-27)
PROC: 30233N1 Transfusion of Nonautologous Red Blood Cells into Peripheral Vein, Percutaneous Approach (ICD-10-PCS; 2021-06-29)
PROC: 0DJ08ZZ Inspection of Upper Intestinal Tract, Via Natural or Artificial Opening Endoscopic (ICD-10-PCS; 2021-06-30)
PROC: 0W9G3ZZ Drainage of Peritoneal Cavity, Percutaneous Approach (ICD-10-PCS; 2021-07-04)
DX: K70.31 Alcoholic cirrhosis of liver with ascites (principal); K76.7 Hepatorenal syndrome; G93.41 Metabolic encephalopathy; K72.90 Hepatic failure, unspecified without coma; K76.6 Portal hypertension; N17.9 Acute kidney failure, unspecified; D63.8 Anemia in other chronic diseases classified elsewhere; E87.1 Hypo-osmolality and hyponatremia; I24.8 Other forms of acute ischemic heart disease; E87.5 Hyperkalemia; Z20.822 Contact with and (suspected) exposure to COVID-19; J98.11 Atelectasis; K20.90 Esophagitis, unspecified without bleeding; K29.70 Gastritis, unspecified, without bleeding; K29.80 Duodenitis without bleeding; B00.9 Herpesviral infection, unspecified; B37.9 Candidiasis, unspecified; E11.22 Type 2 diabetes mellitus with diabetic chronic kidney disease; F17.210 Nicotine dependence, cigarettes, uncomplicated; K31.89 Other diseases of stomach and duodenum; N18.9 Chronic kidney disease, unspecified; Z83.3 Family history of diabetes mellitus; Z87.442 Personal history of urinary calculi
CPT/HCPCS: 36415; 71045; 74176; 76775; 76942; 80048; 80053; 80307; 81001; 82105; 82140; 83605; 83880; 84132; 84484; 85025; 85610; 85730; 86704; 86706; 86708; 86803; 86850; 86900; 86901; 86920; 87340; 93005; 93306; 94640; 96365; 96375; 97163; C9113; G0378; J1815; J2001; J2250; J2405; P9047